=== PATIENT | female | born 1985 | race American Indian/Alaskan Native ===

== ENCOUNTER → 2017-07-09 20:33 | Emergency (ER) | payer OTHER ==
[2017-07-09 20:33] VITALS: BMI 31.9
== END | disposition left against medical advice (07) ==
LOC: C.ER 20:33
DX: Z04.8 Encounter for examination and observation for other specified reasons (principal); Z02.9 Encounter for administrative examinations, unspecified

== ENCOUNTER 2018-06-20 23:21 | Emergency (ER) | payer MEDICAID, OTHER ==
[2018-06-20 23:21] VITALS: BMI 31.9
--- NOTE | 2018-06-21 00:09 | C.PDOC ---
History Of Present Illness Patient presents to the ER with a complaint of a throbbing dull headache that she has had before in the past. She has had full neuro work ups including MRI, CT, and has an appointment in the beginning of July with neuro. Denies f ever, chills, nausea, or vomiting. Time Seen by Provider: 06/21/18 00:08 Chief Complaint (Nursing): Headache History Per: Patient History/Exam Limitations: no limitations Onset/Duration Of Symptoms: Days Current Symptoms Are (Timing): Still Present Severity: Moderate Pain Scale Rating Of: 4 Quality: Dull, Other (Throbbing) Preceeding Symptoms: None Associated Symptoms: denies: Photophobia, Blurred Vision, Nausea, Vomiting, Extremity Weakness Recent travel outside of the [place]: No Past Medical History Reviewed: Historical Data, Nursing Documentation, Vital Signs Vital Signs: Last Vital Signs Temp 98.2 F 06/20/18 23:28 Pulse 80 06/20/18 23:28 Resp 18 06/20/18 23:28 BP 116/80 06/20/18 23:28 Pulse Ox 100 06/21/18 00:56 - Medical History PMH: Anemia Family History: States: No Known Family Hx - Social History Hx Tobacco Use: No Hx Alcohol Use: No Hx Substance Use: No - Immunization History Hx Tetanus Toxoid Vaccination: No Hx Influenza Vaccination: Yes Hx Pneumococcal Vaccination: No Review Of Systems Constitutional: Negative for: Fever, Chills Cardiovascular: Negative for: Chest Pain, Palpitations Respiratory: Negative for: Cough, Shortness of Breath Gastrointestinal: Negative for: Nausea, Vomiting Neurological: Positive for: Headache Physical Exam - Physical Exam Appears: Non-toxic Skin: Warm, Dry Head: Normacephalic Eye(s): bilateral: Normal Inspection, PERRL, EOMI Oral Mucosa: Moist Neck: Trachea Midline, Supple Chest: Symmetrical, No Tenderness Cardiovascular: Rhythm Regular Respiratory: No Rales, No Rhonchi, No Wheezing Gastrointestinal/Abdominal: Soft, No Tenderness Neurological/Psych: Oriented x3, Other (No focal deficits) Gait: Steady ED Course And Treatment - Laboratory Results Result Diagrams: 06/21/18 00:49 06/21/18 00:49 O2 Sat by Pulse Oximetry: 100 (Room air) Pulse Ox Interpretation: Normal Progress Note: Blood work and urinalysis ordered. IV fluids and zofran administered. Reevaluation Time: 02:38 Reassessment Condition: Improved Disposition Counseled Patient/Family Regarding: Studies Performed, Diagnosis, Need For Followup, Rx Given - Disposition Referrals: Aria Bearden MD [Primary Care Provider] - Lionel Alexander MD [Staff Provider] - Disposition: HOME/ ROUTINE Disposition Time: 00:08 Condition: FAIR Additional Instructions: Please return if symptoms recur Prescriptions: Ketorolac Tromethamine [Toradol] 10 mg PO QID PRN #20 tab PRN Reason: Pain, Moderate (4-7) Ondansetron ODT [Zofran ODT] 1 odt PO BID PRN #6 odt PRN Reason: Nausea/Vomiting Instructions: Migraine Headache (DC) Forms: [employer] (Italian) - Clinical Impression Clinical Impression: Migraine - Scribe Statement The provider has reviewed the documentation as recorded by the Scribe Dimitrios Enrique All medical record entries made by the Scribe were at my direction and personally dictated by me. I have reviewed the chart and agree that the record accurately reflects my personal performance of the history, physical exam, medical decision making, and the department course for this patient. I have also personally directed, reviewed, and agree with the discharge instructions and disposition.
[2018-06-21] MEDS ORDERED: Sodium Chloride 0.9% 1,000 ML IV ONE (00:35)
[2018-06-21] MEDS ORDERED: Sodium Chloride 0.9% 1,000 ML ONE (00:53)
[2018-06-21 00:55] LABS: BASO # 0.1 K/uL (0.0-0.2); BASO % 1.1 % (0.0-2.0); EOS # 0.1 K/uL (0.0-0.7); EOS % 2.9 % (0.0-4.0); LYMPH # 2.5 K/uL (1.0-4.3); MEAN CORPUSCULAR HEMOGLOBIN 24.9 pg (27.0-31.0); MEAN CORPUSCULAR HGB CONC 32.4 g/dL (33.0-37.0); MEAN PLATELET VOLUME 9.7 fL (7.2-11.7); MONO # 0.4 K/uL (0.0-0.8); MONO % 7.4 % (0.0-10.0); NEUT # 1.7 K/uL (1.8-7.0); NEUT % 36.6 % (50.0-75.0); NRBC % 0.1 % (0.0-2.0); RBC 4.02 Mil/uL (3.80-5.20); RED CELL DISTRIBUTION WIDTH 18.2 % (11.5-14.5); WHITE BLOOD COUNT 4.8 K/uL (4.8-10.8)
[2018-06-21 00:59] LABS: SQUAMOUS EPITHIAL 8 /hpf (0-5); URINE BACTERIA OCC (<OCC); URINE BILIRUBIN NEGATIVE (NEGATIVE); URINE BLOOD 2+ (NEGATIVE); URINE CLARITY Hazy (Clear); URINE COLOR Yellow (YELLOW); URINE GLUCOSE (UA) NORMAL (Normal); URINE LEUKOCYTE ESTERASE TRACE Leu/uL (Negative); URINE PROTEIN NEGATIVE (NEGATIVE); URINE UROBILINOGEN NORMAL mg/dL (0.2-1.0)
[2018-06-21 01:00] LABS: HCG,QUALITATIVE URINE NEGATIVE (NEGATIVE)
[2018-06-21 01:06] LABS: ALB/GLOB RATIO 1.3 (1.0-2.1); ALT/SGPT 23 U/L (9-52); AST/SGOT 17 U/L (14-36); BLOOD UREA NITROGEN 8 mg/dL (7-17); CALCIUM 8.6 mg/dl (8.6-10.4); GFR NON-AFRICAN AMERICAN > 60
[2018-06-21 02:53] VITALS: BP 97/60; PULSE 68; RESP 16; TEMP 97.7; O2SAT 99
== END 2018-06-21 03:10 | disposition home or self-care (01) ==
LOC: SUPCPDRO 23:21 → C.ER 23:21
DX: G43.909 Migraine, unspecified, not intractable, without status migrainosus (principal)
CPT/HCPCS: 80053; 81001; 84703; 85025; 96361; 96374; 96375; 99284; J1885; J2405; J7030

== ENCOUNTER 2018-12-01 19:20 | Emergency (ER) | payer MEDICAID | END 2018-12-01 23:27 | disposition home or self-care (01) | LOC: C.ER 19:20 ==

== ENCOUNTER 2018-12-05 20:19 | Emergency (ER) | payer MEDICAID | END 2018-12-06 01:16 | disposition home or self-care (01) | LOC: C.ER 12-06 01:16 ==